=== PATIENT | female | born 1980 | race American Indian/Alaskan Native ===

== ENCOUNTER 2018-04-17 07:57 | Emergency (ER) | payer OTHER ==
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
[2018-04-17 08:43] LABS: Bilirubin,Urine NEG (Negative); Blood,Urine NEG (Negative); Color,Urine Yellow (Yellow); Mucus,Urine 1+ /HPF; WBC,Urine < 1.0 /HPF (0.0-6.0)
[2018-04-17 08:53] LABS: HCG Qualitative,Urine Positive (Negative)
[2018-04-17 09:27] VITALS: BP 118/66
== END 2018-04-17 10:00 | disposition home or self-care (01) ==
LOC: ED 07:57
DX: O23.591 Infection of other part of genital tract in pregnancy, first trimester (principal); Z3A.08 8 weeks gestation of pregnancy
CPT/HCPCS: 81001; 81025; 87210; 87591

== ENCOUNTER 2019-04-13 14:55 | Emergency (ER) | payer SELFPAY ==
[2019-04-13 15:04] VITALS: BP 110/66
== END 2019-04-13 22:47 ==
LOC: ED 14:55
DX: R04.0 Epistaxis (principal); Z53.21 Procedure and treatment not carried out due to patient leaving prior to being seen by health care provider